=== PATIENT | female | born 1980 | race Caucasian/White ===

== ENCOUNTER → 2023-01-12 09:28 | Outpatient (BNVA) | payer MEDICAID, SELFPAY | PROVIDERS: Visit Provider Podiatrist Foot & Ankle Surgery | DX: M79.672 Pain in left foot (principal); M79.2 Neuralgia and neuritis, unspecified | CPT/HCPCS: 73630 ==

== ENCOUNTER 2023-02-18 15:36 | Outpatient (CLI) | payer MEDICAID, SELFPAY ==
--- NOTE | 2023-02-18 16:00 | CTR_ITS ---
PROCEDURE INFORMATION: Exam: CT Left Lower Extremity Without Contrast, Foot Exam date and time: 02/18/2023 4:21 PM Age: 42 years old Clinical indication: Left; Patient HX: Pain lt foot at base of big toe x 1 month- PT could not remove toe ring; Additional info: S93.629a - sprain of tarsometatarsal ligament of unspecif. . . TECHNIQUE: Imaging protocol: CT of the left lower extremity without contrast was performed. Exam focused on the foot. Radiation optimization: All CT scans at this facility use at least one of these dose optimization techniques: automated exposure control; mA and/or kV adjustment per patient size (includes targeted exams where dose is matched to clinical indication); or iterative reconstruction. REPORTING DATA: Count of CT and Cardiac NM exams in prior 12 months: This patient has received 0 known CTs and 0 known cardiac nuclear medicine studies in the 12 months prior to the current study. COMPARISON: CR XR foot LT min 3V* [id number] 01/12/2023 9:32 AM RADIATION DOSE METRICS: Total DLP (mGy-cm): 117.73 FINDINGS: Bones/joints: Small plantar calcaneal spur. No tibiotalar joint effusion. No fracture, dislocation or subluxation. No periosteal reaction or supsicious bone lesion. The ankle mortise is symmetric. No osteochondral lesion is seen. Soft tissues: The visualized Achilles tendon is grossly normal in morphology. No significant soft tissue swelling. CT/CT foot LT wo con* [id number] IMPRESSION: 1. No acute fracture is identified. Consider MRI to further assess if clinically warranted. 2. Small plantar calcaneal spur.
== END 2023-02-18 15:37 | disposition home or self-care (01) ==
PROVIDERS: PCP Nurse Practitioner Family; Visit Provider Podiatrist Foot & Ankle Surgery
DX: S93.622A Sprain of tarsometatarsal ligament of left foot, initial encounter (principal); X58.XXXA Exposure to other specified factors, initial encounter; M77.32 Calcaneal spur, left foot
CPT/HCPCS: 73700